=== PATIENT | female | born 1985 | race African-American/Black ===

== ENCOUNTER 2016-07-29 13:16 | Emergency (ER) | payer SELFPAY ==
[2016-07-29 13:41] VITALS: BP 145/86; PULSE 76; TEMP 97.9; BMI 32.8
[2016-07-29] MEDS ORDERED: CYCLOBENZAPRINE HCL 10 MG TABLET (FP) PO ONE (15:13)
[2016-07-29] MEDS ORDERED: CYCLOBENZAPRINE HCL 10 MG TABLET (FP) ONE (15:17)
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
== END 2016-07-29 15:30 | disposition home or self-care (01) ==
LOC: JERFT 13:16
DX: M62.830 Muscle spasm of back (principal); G89.29 Other chronic pain; I10 Essential (primary) hypertension
CPT/HCPCS: 99281-25

== ENCOUNTER 2016-09-05 09:13 | Emergency (ER) | payer SELFPAY ==
[2016-09-05 09:18] VITALS: BP 130/80; PULSE 94; TEMP 97.8; BMI 31.9
[2016-09-05] MEDS ORDERED: TETRACAINE 0.5% OPHTH SOLN 2 ML BOTTLE ONE (09:38)
--- NOTE | 2016-09-05 09:41 | PDOC ---
History of Present Illness - General Chief Complaint: Eye Problem Stated Complaint: POSSIBLE PINK EYE Time Seen by Provider: 09/05/16 09:20 History Source: Patient - History of Present Illness Timing/Duration: other (yesterday) Severity: mild Associated Symptoms: denies: cough, fever/chills Past History - Past Medical History Allergies/Adverse Reactions: Allergies Allergy/AdvReac Type Severity Reaction Status Date / Time No Known Allergies Allergy Verified 09/05/16 09:18 Home Medications: Ambulatory Orders Ciprofloxacin 0.3% Eye Drops [Ciloxan 0.3% Eye Drops -] 1 drop OD ASDIR #1 bottle 09/05/16 HTN: Yes - Psycho/Social/Smoking Cessation Hx Anxiety: No Suicidal Ideation: No Smoking History: Never smoked Have you smoked in the past 12 months: No Information on smoking cessation initiated: No Hx Alcohol Use: No Drug/Substance Use Hx: No Substance Use Type: None Review of Systems - Review of Systems Constitutional: No: Chills, Fever HEENTM: Yes: Eye Pain. No: Blurred Vision, Tearing, Ear Pain, Nose Congestion, Throat Pain Respiratory: No: Cough *Physical Exam - Vital Signs Last Vital Signs Temp Pulse Resp BP Pulse Ox 97.8 F 94 H 18 130/80 98 09/05/16 09:16 09/05/16 09:16 09/05/16 09:16 09/05/16 09:16 09/05/16 09:16 - Physical Exam General Appearance: Yes: Appropriately Dressed. No: Apparent Distress HEENT: positive: Normal Voice, Other (minimal erythema to R conjunctiva, no tearing/discharge, no fb, ~2mm uptake to central cornea on slit lamp). negative : Scleral Icterus (R), Scleral Icterus (L) Neck: positive: Supple Respiratory/Chest: negative: Respiratory Distress Integumentary: positive: Dry, Warm Neurologic: positive: Fully Oriented, Alert, Normal Mood/Affect Medical Decision Making - Medical Decision Making 09/05/16 09:38 30-year-old female, no significant history, here with right eye discomfort and discharge since yesterday. Also complaining of possible photophobia. No FB sensation or visual changes. Denies any uri sxs. No sick contacts. Patient does wear contact lens. Patient well-appearing and in no apparent distress, with minimal right conjunctival erythema. No foreign body on lid eversion and no tearing or discharge noted. Small uptake on slit lamp. Christo dc w/ ciproflox for corneal abrasion. Tetanus UTD. Patient instructed to throw current lens and wear glasses in the meantime. Can wear new lens once sxs have resolved 09/05/16 09:53 *DC/Admit/Observation/Transfer Diagnosis at time of Disposition: Corneal abrasion Qualifiers: Encounter type: initial encounter Laterality: right Qualified Code(s): S05.01XA - Injury of conjunctiva and corneal abrasion without foreign body, right eye, initial encounter - Discharge Dispostion Disposition: HOME Condition at time of disposition: Good - Prescriptions Prescriptions: Ciprofloxacin 0.3% Eye Drops [Ciloxan 0.3% Eye Drops -] 1 drop OD ASDIR #1 bottle - Patient Instructions Printed Discharge Instructions: Corneal Abrasion Additional Instructions: Please use ointment as directed. Throw away current contact lens and do not wear new contact lens until symptoms have resolved. Please use glasses in the meantime
[2016-09-05] MEDS ORDERED: ALBUTEROL SO4 2.5/IPRATROPIUM 0.5 INH SOL 3 ML VIAL.NEB. NEB ONE ×2 (09:46→10:10)
[2016-09-05] MEDS ORDERED: predniSONE 20 MG TABLET (UD) ONE (09:47)
== END 2016-09-05 10:00 | disposition home or self-care (01) ==
LOC: JERFT 09:13
DX: S05.01XA Injury of conjunctiva and corneal abrasion without foreign body, right eye, initial encounter (principal); X58.XXXA Exposure to other specified factors, initial encounter; Y93.9 Activity, unspecified; Y92.89 Other specified places as the place of occurrence of the external cause
CPT/HCPCS: 99281-25

== ENCOUNTER 2017-04-23 16:08 | Emergency (ER) | payer OTHER ==
[2017-04-23 16:14] VITALS: BP 137/114; PULSE 86; TEMP 98.4; BMI 32.3
--- NOTE | 2017-04-23 16:16 | PDOC ---
Rapid Medical Evaluation Medical Evaluation: Allergies Allergy/AdvReac Type Severity Reaction Status Date / Time No Known Allergies Allergy Verified 04/23/17 16:14 Vital Signs Temp Pulse Resp BP Pulse Ox 98.4 F 86 20 137/114 99 04/23/17 16:11 04/23/17 16:11 04/23/17 16:11 04/23/17 16:11 04/23/17 16:11 04/23/17 16:14 I have performed a brief in-person evaluation of this patient. The patient presents with a chief complaint of:blood exposure to recent tattoo on R hand. Source is currently a pt in ED as well Pertinent physical exam findings:unremarkable, no open wounds I have ordered the following:nothing, proceed to FT for further eval The patient will proceed to the ED for further evaluation.
[2017-04-23] MEDS ORDERED: DIPHTH,PERTUSS(ACELL),TET 0.5 ML DISP.SYRIN IM ONE (16:53)
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
== END 2017-04-23 17:26 | disposition home or self-care (01) ==
LOC: JERFT 16:08
PROC: 3E0234Z Introduction of Serum, Toxoid and Vaccine into Muscle, Percutaneous Approach (ICD-10-PCS; principal; 2017-04-23)
DX: Z77.21 Contact with and (suspected) exposure to potentially hazardous body fluids (principal); X58.XXXA Exposure to other specified factors, initial encounter; Y93.89 Activity, other specified; Y92.10 Unspecified residential institution as the place of occurrence of the external cause; Y99.0 Civilian activity done for income or pay; I10 Essential (primary) hypertension
CPT/HCPCS: 84703; 90715; 99281-25